=== PATIENT | female | born 1930 | race Caucasian/White ===

== ENCOUNTER 2019-01-06 21:27 | Inpatient (IN) | payer MEDICARE, OTHER ==
[~2019-01-06] VITALS: Ht 157.5 cm; Wt 66.0 kg
[~2019-01-06 21:27] MED LIST: ASPI-555 PO; ATOR40TA69 PO; CALC-862 PO; CEFX2I IVP; CLOP75TA32 PO; DOCU-116 PO; FLUT15.845 NS; FLUT1AER IH; INSU100V12 SQ; IPRA3AMP24 IH; LACO150T2 PO; LATA7.5D OP; LEVO50TA11 PO; LINA5TAB PO; ONDA4TAB4 PO; PANT40TA25 PO; POLY17PO4 PO; POTA20TA82 PO; QUET25TA74 PO; SENN1TAB72 PO; TIOT18CA3 IH; TRAM50TA4 PO; VANC1PLA9 IV
[2019-01-06 21:54] LABS: BASOPHILS % (AUTO) 0.8 % (0.0-5.0); EOSINOPHILS % (AUTO) 8.8 % (0.0-8.0); HEMATOCRIT 29.5 % (36-48); LYMPHOCYTES % (AUTO) 9.9 % (21.0-51.0); MEAN CORPUSCULAR HEMOGLOBIN 28.2 pg (27.0-33.0); MEAN CORPUSCULAR HGB CONC 33.1 g/dL (32.0-36.0); MEAN CORPUSCULAR VOLUME 85.2 fL (79-99); MONOCYTES % (AUTO) 7.2 % (3.0-13.0); NEUTROPHILS % (AUTO) 73.3 % (40.0-77.0); PLATELET COUNT (AUTO) 387 K/uL (130-400); RED BLOOD CELL COUNT(AUTO) 3.47 MIL/uL (4.00-5.50); RED CELL DISTRIBUTION WIDTH 17.7 % (11.0-15.5); WHITE BLOOD COUNT (AUTO) 12.7 K/uL (4.8-10.8)
[2019-01-06 22:14] LABS: ALBUMIN 3.1 g/dL (3.5-5.0); BILIRUBIN,TOTAL 0.3 mg/dL (0.2-1.0); TOTAL PROTEIN, SERUM 6.5 g/dL (6.0-8.3)
[2019-01-06] MEDS ORDERED: DEXTROSE 5 % AND 0.9 % NACL 1,000 ML IV ONE ×2 (22:17→22:33)
[2019-01-06 22:38] LABS: INR 0.95 (0.85-1.15); PARTIAL THROMBOPLASTIN TIME 23.8 SEC (26.3-35.5)
[2019-01-06 22:39] LABS: APPEARANCE,URINE Clear (CLEAR); BILIRUBIN,URINE Negative (NEGATIVE); COLOR,URINE Yellow (YELLOW); GLUCOSE, URINE (UA) Negative (NEGATIVE); KETONES,URINE Negative (NEGATIVE); LEUKOCYTE ESTERASE ,URINE Small (NEGATIVE); NITRATE,URINE Negative (NEGATIVE); OCCULT BLOOD,URINE Negative (NEGATIVE); PH,URINE 5.5 (5.0-8.0); PROTEIN,URINE POS 2+ mg/dL (NEGATIVE); UROBILINOGEN,URINE 0.2 mg/dL (0.2-1.0)
[2019-01-06 22:51] LABS: RBC,URINE None Seen /HPF (0-1)
[2019-01-06 22:52] LABS: AMORPHOUS SEDIMENT,UR Rare /LPF (None Seen); BACTERIA,URINE Rare /HPF (None Seen); SQUAMOUS EPITHELIAL CELL,UR Few /HPF (0-2)
[2019-01-06 23:17] LABS: CREATINE KINASE, TOTAL 152 U/L (21-232); MAGNESIUM 1.6 mg/dL (1.80-2.40); MYOGLOBIN 235 ng/mL (10-92); THYROID STIMULATING HORMONE 11.26 uIU/mL (0.36-3.74); TROPONIN I < 0.04 ng/mL (0.00-0.06)
[2019-01-06 23:28] LABS: CREATININE 1.4 mg/dL (0.5-1.5)
[2019-01-06 23:32] LABS: POTASSIUM 2.8 mmol/L (3.5-5.1)
[2019-01-06] MEDS ORDERED: ZOSYN 3.375GM+NS 50ML 50 ML IV ONE (23:45)
[2019-01-07] VITALS (7 sets, daily range): BP systolic 115–167; BP diastolic 54–78
[2019-01-07] MEDS ORDERED: CEFTRIAXONE SODIUM 1 GM ONE (00:52)
[2019-01-07] MEDS ORDERED: MAGNESIUM 2GM PREMIX 50ML 50 ML IV ONE (00:52)
[2019-01-07] MEDS ORDERED: DEXTROSE 50%-WATER 50 ML DISP.SYRIN IV ONE (00:54)
[2019-01-07] MEDS ORDERED: POTASSIUM CHLORIDE 20MEQ/100ML 100 ML IV ONE (02:06)
--- NOTE | 2019-01-07 03:38 | NUR ---
Admission note: Admitted to floor via stretcher from ER. AOx1. Fully awake and responsive.VS checked and recorded. Assesment done. ( see [facility]PO[facility] flow chart for full assessment). IV site to 1. RH #24 gauge , SL ;2. left thumb #24 gauge with potassium 20 mEQ /100 ml at a rate of 20 ml/hr- patent and intact. Oriented to room and use of call light. Verbalized understanding. Plan of care initiated. Monitored and observed for any unusual changes. Hooked to telemetry as ordered with SR , BBB 77. Cared for and needs attended. No apparent distress / discomfort noted.
[2019-01-07] MEDS: CEFTRIAXONE SODIUM 1 GM IVP SCH (04:19)
[2019-01-07] MEDS: DEXTROSE 5 %-0.45 % NACL 1,000 ML IV SCH ×2 (04:21→15:50)
[2019-01-07 04:52] LABS: HEMATOCRIT 29.7 % (36-48); MEAN CORPUSCULAR HEMOGLOBIN 27.7 pg (27.0-33.0); MEAN CORPUSCULAR HGB CONC 32.6 g/dL (32.0-36.0); MEAN CORPUSCULAR VOLUME 84.9 fL (79-99); NUCLEATED RED BLOOD CELLS 0.1 % (0.0-0.19); PLATELET COUNT (AUTO) 191 K/uL (130-400); RED CELL DISTRIBUTION WIDTH 17.8 % (11.0-15.5); WHITE BLOOD COUNT (AUTO) 11.6 K/uL (4.8-10.8)
[2019-01-07] MEDS ORDERED: INSLAN SQ ×2 (05:03)
[2019-01-07] MEDS ORDERED: LACO100T2 PO (05:03)
[2019-01-07] MEDS ORDERED: LEVO50 PO (05:03)
[2019-01-07] MEDS ORDERED: POLY17PO4 PO (05:03)
[2019-01-07] MEDS ORDERED: DEXTROSE 50%-WATER 50 ML DISP.SYRIN IV PRN (05:15)
[2019-01-07] MEDS ORDERED: GLUCAGON 1MG KIT 1 MG ML IM PRN (05:15)
[2019-01-07 05:19] LABS: ALBUMIN 3.1 g/dL (3.5-5.0); BILIRUBIN,TOTAL 0.4 mg/dL (0.2-1.0); CREATININE 1.5 mg/dL (0.5-1.5); POTASSIUM 4.2 mmol/L (3.5-5.1); TOTAL PROTEIN, SERUM 6.5 g/dL (6.0-8.3)
[2019-01-07] MEDS ORDERED: FLUC150T6 PO (06:49)
[2019-01-07] MEDS ORDERED: ERYT1OIN7 OP (06:55)
[2019-01-07] MEDS ORDERED: GUAI237L97 PO (07:02)
[2019-01-07] MEDS ORDERED: GUAI100S13 PO (07:02)
[2019-01-07] MEDS ORDERED: CARB-283 OP (07:08)
--- NOTE | 2019-01-07 12:00 | NUR ---
CALLED ANA, PATIENTS DAUGHTER TO CONFIRM THAT THE PATIENT IS DNR. MARCELINO VÁZQUEZ CO-SIGNED WITH ME. DNR FORM PLACED ON CHART
[2019-01-08] MEDS: DEXTROSE 5 %-0.45 % NACL 1,000 ML IV SCH (04:14)
[2019-01-08 04:15] VITALS: BP 157/57
[2019-01-08 05:43] LABS: HEMATOCRIT 31.2 % (36-48); MEAN CORPUSCULAR HEMOGLOBIN 27.9 pg (27.0-33.0); MEAN CORPUSCULAR HGB CONC 32.6 g/dL (32.0-36.0); MEAN CORPUSCULAR VOLUME 85.4 fL (79-99); PLATELET COUNT (AUTO) 334 K/uL (130-400); RED BLOOD CELL COUNT(AUTO) 3.65 MIL/uL (4.00-5.50); WHITE BLOOD COUNT (AUTO) 9.5 K/uL (4.8-10.8)
[2019-01-08 07:59] VITALS: BP 164/88
[2019-01-08 12:14] VITALS: BP 153/72
[2019-01-08 15:45] VITALS: BP 152/78
[2019-01-08] MEDS ORDERED: ACETAMINOPHEN 325 MG TAB PO PRN (16:15)
--- NOTE | 2019-01-08 16:18 | NUR ---
DNR ORDER GIVEN BY DR RODRIGUEZ PER FAMILY WISHES ORDER PLACED AND ORDER FOR TYLENOL 650 MG PO EVERY 6 HOURS NEEDED FOR PAIN SCORE 1-5
[2019-01-08] MEDS ORDERED: TRAMADOL HCL 50 MG TABLET PO PRN (18:15)
--- NOTE | 2019-01-08 18:41 | NUR ---
INITIAL: No family @ the bedside. Pt w AMS. Call placed to dtr Jo Cabello. She mentions that prior to admission pt was @ [facility] for short term rehab. She mentions that pt has been in and out of facilities since August and in between hosp admissions was @ [place] assisted living. Per Mrs Cabello pt requires assistance w ADLs was beginning to take short steps w PT. Per Mrs Cabello dcp will be for pt to return to [facility]. Phone consent obtained and placed in chart. CM to continue to follow and wait for Md recommendations. Addendum: 01/08/19 at 1843 by TREVER DILLARD Amended: Links added.
[2019-01-08 19:34] VITALS: BP 151/73
[2019-01-08] MEDS: CEFTRIAXONE SODIUM 1 GM IVP SCH (23:32)
[2019-01-09 00:21] VITALS: BP 161/84
[2019-01-09 04:21] VITALS: BP 164/70
[2019-01-09 06:03] LABS: CREATININE 1.3 mg/dL (0.5-1.5); HEMATOCRIT 29.6 % (36-48); MEAN CORPUSCULAR HEMOGLOBIN 27.8 pg (27.0-33.0); MEAN CORPUSCULAR HGB CONC 32.5 g/dL (32.0-36.0); MEAN CORPUSCULAR VOLUME 85.5 fL (79-99); NUCLEATED RED BLOOD CELLS 0.2 % (0.0-0.19); PLATELET COUNT (AUTO) 307 K/uL (130-400); POTASSIUM 3.6 mmol/L (3.5-5.1); RED BLOOD CELL COUNT(AUTO) 3.47 MIL/uL (4.00-5.50); RED CELL DISTRIBUTION WIDTH 17.7 % (11.0-15.5)
[2019-01-09 07:30] VITALS: BP 155/87
[2019-01-09 11:00] VITALS: BP 154/113
--- NOTE | 2019-01-09 15:45 | NUR ---
CM Note: HNR pending acceptance CM spoke to Bisi w/[facility], received clinicals, pasrr this morning. Checking benefits at this time. Stated pt has just converted to [facility] last Wednesday, will double check w/family regarding possible continue stay via private pay. Pt pending acceptance at this time. EMS arranged and faxed for today, primary nurse to call [facility] once pt ready to DC. Primary nurse aware. CM to cont to follow up.
[2019-01-09 16:00] VITALS: BP 146/78
[2019-01-09 20:00] VITALS: BP 149/77
[2019-01-10] VITALS: BP 142/64
[2019-01-10] MEDS: CEFTRIAXONE SODIUM 1 GM IVP SCH (00:32)
[2019-01-10] MEDS ORDERED: POTASSIUM CHLORIDE 20MEQ/100ML 100 ML IV PRN (03:00)
[2019-01-10] MEDS ORDERED: LIDOCAINE HCL-MPF 1% 2ML VIAL IV PRN (03:00)
[2019-01-10] MEDS ORDERED: MAGNESIUM 2GM PREMIX 50ML 50 ML IV PRN (03:00)
[2019-01-10] MEDS ORDERED: POTASSIUM CHLORIDE 20 MEQ ERTAB PO PRN (03:00)
[2019-01-10 04:00] VITALS: BP 148/71
[2019-01-10 06:25] LABS: CREATININE 1.2 mg/dL (0.5-1.5); MAGNESIUM 2.1 mg/dL (1.80-2.40); POTASSIUM 3.7 mmol/L (3.5-5.1)
[2019-01-10 06:27] LABS: HEMATOCRIT 30.9 % (36-48); MEAN CORPUSCULAR HEMOGLOBIN 27.3 pg (27.0-33.0); MEAN CORPUSCULAR HGB CONC 31.9 g/dL (32.0-36.0); MEAN CORPUSCULAR VOLUME 85.6 fL (79-99); PLATELET COUNT (AUTO) 278 K/uL (130-400); RED BLOOD CELL COUNT(AUTO) 3.61 MIL/uL (4.00-5.50); RED CELL DISTRIBUTION WIDTH 17.9 % (11.0-15.5)
[2019-01-10 07:00] VITALS: BP 151/76
[2019-01-10] MEDS: POTASSIUM CHLORIDE 10% ELIXIR 20 MEQ/15 ML UDCUP PO PRN ×2 (08:32→10:44)
--- NOTE | 2019-01-10 08:37 | NUR ---
20 meq kcl given per K+ protocol current level 3.7
--- NOTE | 2019-01-10 09:19 | NUR ---
CALL DR. KOHLER FOR THE URINE CULTURE.
[2019-01-10] MEDS ORDERED: MEROPENEM 500 MG VIAL IVP SCH ×2 (09:30→09:45)
[2019-01-10] MEDS ORDERED: RENAL DOSE IV PRN (09:30)
[2019-01-10 11:00] VITALS: BP 157/79
[2019-01-10] MEDS ORDERED: ONDANSETRON 4 MG TABLET PO PRN (12:00)
--- NOTE | 2019-01-10 12:00 | NUR ---
received verbal order from dr oakes to remove rogers cathetor pending d/c to snf today; i received a call from pt's daughter javier who had many concerns over pt's home medications and them causing her extreme sedeation and continuation of seizures; i brought this up to dr oakes and fact that pt's home medications had not been resumed as of yet; he said he would look into it and get back to me.
[2019-01-10] MEDS ORDERED: ARTIFICAL TEARS SOL 15 ML OP SCH (12:15)
[2019-01-10] MEDS ORDERED: IPRATROPIUM/ALBUTEROL SULFATE 3 ML SOLUTION IH SCH (14:00)
[2019-01-10] MEDS ORDERED: MERO500V IVP (14:40)
--- NOTE | 2019-01-10 17:13 | NUR ---
discharge report called and faxed to annie at [facility]; i have also called [facility] ems to transport pt there to do her profound weakness and need for oxygen; i will be sending pt with an iv access due to her need to cont. meropem at receiving facility; i informed pt's daughter Jo earlier today of pt being moved back to facility; dr Myers did make changes in pt's medications and I informed receiving facility of these changes.
--- NOTE | 2019-01-10 17:44 | NUR ---
pt stated understanding of all d/c instructions in regards to uti dx and hypoglycemia; pt ready for ems pickup; she is still due to void at this point and i have encouraged her to drink more fluid.
[2019-01-10] MEDS ORDERED: INSULIN GLARGINE 100 UNITS/ML 10 ML VIAL SQ SCH (21:00)
[2019-01-10] MEDS ORDERED: LATANOPROST 2.5 ML DROPS OP SCH (21:00)
[2019-01-10] MEDS ORDERED: DOCUSATE SODIUM 100 MG CAP PO SCH (21:00)
[2019-01-10] MEDS ORDERED: ERYTHROMYCIN BASE 0.5% OPHTH OINT 1 GM TUBE OP SCH (21:00)
[2019-01-10] MEDS ORDERED: ATORVASTATIN CALCIUM 40 MG TABLET PO SCH (21:00)
[2019-01-11] MEDS ORDERED: LEVOTHYROXINE 125 MCG TABLET PO SCH (07:30)
[2019-01-11] MEDS ORDERED: INSULIN GLARGINE 100 UNITS/ML 10 ML VIAL SQ SCH (08:00)
[2019-01-11] MEDS ORDERED: VIMPAT 100 MG PO SCH (09:00)
[2019-01-11] MEDS ORDERED: ASPIRIN 81 MG EC TAB PO SCH (09:00)
[2019-01-11] MEDS ORDERED: CALCIUM 600 + VITAMIN D 400 TABLET PO SCH (09:00)
[2019-01-11] MEDS ORDERED: PANTOPRAZOLE SODIUM 40 MG TABLET.DR PO SCH (09:00)
[2019-01-11] MEDS ORDERED: POLYETHYLENE GLYCOL 3350 17 GM POWD.PACK PO SCH (09:00)
[2019-01-11] MEDS ORDERED: SUB TO IPRATROPIUM 0.5MG/2.5ML PER P&T IH SCH (09:00)
[2019-01-11] MEDS ORDERED: LINAGLIPTIN 5 MG TABLET PO SCH (09:00)
[2019-01-11] MEDS ORDERED: POTASSIUM CHLORIDE 20 MEQ ERTAB PO SCH (09:00)
[2019-01-11] MEDS ORDERED: CLOPIDOGREL BISULFATE 75 MG TAB PO SCH (09:00)
[2019-01-11] MEDS ORDERED: BREO ELLIPTA IH SCH (09:00)
== END 2019-01-10 18:45 | DRG 871 ==
LOC: EDH 21:27 → EDHIP 01-07 00:32 → OBSVTOIN 01-07 00:32 → 3AH 01-07 00:51
PROVIDERS: ADMIT Family Medicine; ATTEND Family Medicine
DX: A41.9 Sepsis, unspecified organism (principal); J18.9 Pneumonia, unspecified organism; J96.10 Chronic respiratory failure, unspecified whether with hypoxia or hypercapnia; I12.0 Hypertensive chronic kidney disease with stage 5 chronic kidney disease or end stage renal disease; E87.1 Hypo-osmolality and hyponatremia; N39.0 Urinary tract infection, site not specified; N18.4 Chronic kidney disease, stage 4 (severe); Z16.12 Extended spectrum beta lactamase (ESBL) resistance; E11.649 Type 2 diabetes mellitus with hypoglycemia without coma; J44.9 Chronic obstructive pulmonary disease, unspecified; E87.6 Hypokalemia; H70.90 Unspecified mastoiditis, unspecified ear; G40.909 Epilepsy, unspecified, not intractable, without status epilepticus; K21.9 Gastro-esophageal reflux disease without esophagitis; I25.10 Atherosclerotic heart disease of native coronary artery without angina pectoris; B96.20 Unspecified Escherichia coli [E. coli] as the cause of diseases classified elsewhere; E03.9 Hypothyroidism, unspecified; E78.5 Hyperlipidemia, unspecified; E11.22 Type 2 diabetes mellitus with diabetic chronic kidney disease; Z88.1 Allergy status to other antibiotic agents; Z88.2 Allergy status to sulfonamides; Z99.81 Dependence on supplemental oxygen
CPT/HCPCS: 36415; 70450; 71045; 80048; 80053; 81001; 82550; 82948; 83605; 83735; 83874; 83880; 84145; 84443; 84484; 85025; 85027; 85610; 85730; 87040; 87077; 87088; 87186; 93005; 94640; 94664; G0378; J0696; J2185; J2543; J3475; J3480; J7042; J7070